=== PATIENT | female | born 1985 | race African-American/Black ===

== ENCOUNTER 2017-07-07 23:14 | Observation (INO) | payer BC ==
[2017-07-08 00:39] LABS: BILIRUBIN,URINE NEGATIVE (NEG); CLARITY,URINE CLEAR; COLOR,URINE YELLOW; GLUCOSE,URINE NEGATIVE (NEG); NITRITE,URINE NEGATIVE (NEG); PH,URINE 6.5; PROTEIN,URINE NEGATIVE (NEG-TRACE); UROBILINOGEN,URINE 0.2 mg/dL (0.2 mg/dL)
[2017-07-08 00:44] LABS: BACTERIA,URINE MODERATE /HPF (0-FEW); RBC,URINE 0 /HPF (0-2); SQUAMOUS EPITHELIAL CELL,UR MOD /LPF; WBC,URINE OCC /HPF (0-4)
[2017-07-08 00:46] LABS: BARBITURATES NEG (NEG); BENZODIAZEPINES NEG (NEG); CANNABINOIDS NEG (NEG); COCAINE NEG (NEG); METHADONE NEG (NEG); OPIATES NEG (NEG); PHENCYCLIDINE NEG (NEG)
[2017-07-08 00:49] LABS: AMPHETAMINE/METHAMPHETAMINE NEG (NEG); ETHANOL, URINE NEG (NEG)
[2017-07-08] MEDS ORDERED: IV RINGERS,LACTATED 1000ML 1,000 ML IV ×2 (01:30)
[2017-07-08] MEDS: hydrOXYzine PAMOATE 25 MG CAPSULE PO ×2 (01:32)
== END 2017-07-08 01:40 | disposition home or self-care (01) ==
LOC: 3 SO LND 23:14
DX: O26.893 Other specified pregnancy related conditions, third trimester (principal); R10.9 Unspecified abdominal pain; M54.9 Dorsalgia, unspecified; Z3A.29 29 weeks gestation of pregnancy
CPT/HCPCS: 80307; 81001; 87086; G0378; G0379; Q0177